=== PATIENT | male | born 1985 | race African-American/Black ===

== ENCOUNTER 2018-06-01 20:52 | Emergency (ER) | payer BC ==
[~2018-06-01] VITALS: Ht 175.3 cm; Wt 93.0 kg
[2018-06-01 21:01] VITALS: BP_SYST 125
[2018-06-01] MEDS ORDERED: PREDNISONE 20 MG TABLET PO ONE (22:00)
[2018-06-01 22:10] VITALS: BP_SYST 125
== END 2018-06-01 22:10 | disposition home or self-care (01) ==
LOC: SED 20:52
DX: J02.8 Acute pharyngitis due to other specified organisms (principal); B97.89 Other viral agents as the cause of diseases classified elsewhere
CPT/HCPCS: 36415; 86403; 87081; 99284; J7512